=== PATIENT | female | born 1975 | race Two or more races ===

== ENCOUNTER 2023-03-25 04:26 | Day surgery (SDC) | payer OTHER ==
[2023-03-19 10:51] VITALS: BMI 27.3
[2023-03-25] MEDS ORDERED: SIMETHICONE 40 MG/0.6 ML BOTTLE ONE (07:37)
[2023-03-25 08:14] VITALS: TEMP 98
[2023-03-25 08:48] VITALS: BP 113/73; PULSE 76; RESP 17
== END 2023-03-25 08:53 | disposition home or self-care (01) ==
LOC: JASU-ENDO 04:26
PROVIDERS: ATTEND Internal Medicine Gastroenterology
PROC: 0DB68ZX Excision of Stomach, Via Natural or Artificial Opening Endoscopic, Diagnostic (ICD-10-PCS; principal; 2023-03-25 08:00)
DX: K29.50 Unspecified chronic gastritis without bleeding (principal); K44.9 Diaphragmatic hernia without obstruction or gangrene
CPT/HCPCS: 81025; 88305-TC; 88342-TC